=== PATIENT | male | born 1995 | race Two or more races ===

== ENCOUNTER 2024-11-12 07:25 | Day surgery (SDC) | payer OTHER, SELFPAY ==
--- NOTE | 2024-11-11 12:54 | SUR.PREOP ---
Comfirm with [facility] nurse both inmates will arrived at 0630.
--- NOTE | 2024-11-11 15:59 | ESHP_ITS ---
RE: ERIK RENTERIA : 1995 DATE OF ADMISSION: 11/11/2024 The patient is an inmate from [facility]. His [facility] number is [id number]. HISTORY OF PRESENT ILLNESS: The patient is a 29-year-old inmate from [facility] with a tight foreskin. He is urinating well. PAST MEDICAL HISTORY: He has no history of diabetes mellitus. No history of hypertension. PAST SURGICAL HISTORY: None. SOCIAL HISTORY: He has no children. HOME MEDICATIONS: None. ALLERGIES: NONE KNOWN. PHYSICAL EXAMINATION: HEENT: Normal. NECK: Supple. LUNGS: Clear. CARDIOVASCULAR: Heart sounds are normal. ABDOMEN: Soft. GENITOURINARY: Phallus reveals thickening of foreskin with phimosis. The patient also complains of penis turning to the left side when he has erection. IMPRESSION: 1. Phimosis. 2. Early Peyronie's disease. PLAN: Circumcision. Planned procedure risks and complications have been discussed with the patient. The patient has understood them and agreed to proceed. Thank you very much for your kind referral. cc: [facility] DT: 14:51:17 TT: 15:58:00 Ref: [id number] - TID: [id number]
[2024-11-12] VITALS (8 sets, daily range): BP systolic 90–123; BP diastolic 55–75; PULSE 52–71; RESP 12–20; TEMP 36.5–36.7; O2SAT 96–99; BMI 29.9
--- NOTE | 2024-11-12 10:00 | SUR.PHASEI ---
1000: Pt. wakes to name then drifts back to sleep, vitals stable, breathing unlabored, no signs of distress, dressing to penis CDI, no active bleed noted, report received from Donna ESPINAL and Helio TURNER.
--- NOTE | 2024-11-12 11:00 | SUR.PHASEII ---
1100: Pt. AAOx4, vitals stable, breathing unlabored, no complaint of pain or nausea, dressing to penis CDI, no active bleed noted, pt. tolerated sips of soda well, pt. ambulated to wheelchair with steady gait and no assist, no complications. Gave discharge instructions to the pt. and his ride, both verbalized understanding and had no further questions. Pt. left with all personal belongings.
--- NOTE | 2024-11-12 19:44 | ESOP_ITS ---
RE: ERIK RENTERIA : 1995 DATE OF OPERATION: 11/12/2024 The patient's [facility] number is . PREOPERATIVE DIAGNOSES: Phimosis. History of paraphimosis in the past. POSTOPERATIVE DIAGNOSES: . PROCEDURE PERFORMED: Circumcision. ANESTHESIA: General. INDICATION: The patient is a 29-year-old male from [facility]. He was seen in the office. The patient has a phimosis. He had a history of paraphimosis in the past. He has a very thick foreskin. He is now scheduled to have circumcision. Planned procedure, risks, and complications have been discussed with the patient. The patient understood them and agreed to proceed. DESCRIPTION OF PROCEDURE: After the patient was brought to the operating table under adequate general anesthesia and supine position, parts were prepped and draped in the usual fashion. Circumcision was then carried out in a standard fashion by incising the foreskin in a circumferential manner at the level of stubbs glandis. Complete hemostasis was obtained by using electrocoagulation. Skin was reapproximated back by placing interrupted sutures of 3-0 chromic catgut. Local anesthetic was injected at the base of the penis. Sterile dressing was then applied. The patient was then transferred to the recovery room in a satisfactory condition having tolerated the entire procedure well. Sponge count and needle count at the end of the procedure was found to be correct. Estimated blood loss was approximately 3 mL. Thank you very much for your kind referral. cc: [facility] DT: 10:08:54 TT: 12:11:00 Ref: [id number] - TID: [id number]
== END 2024-11-12 11:00 ==
PROVIDERS: Referring Provider Surgery; Visit Provider Surgery
PROC: (CPT 54161; principal; 2024-11-12 09:30)
DX: N47.1 Phimosis (principal); N48.6 Induration penis plastica
CPT/HCPCS: 54161; 80048; 85025; A4217; A4649; J0690; J1100; J1885; J2250; J2405; J2704; J3010; J3490; A9270; J0665